=== PATIENT | female | born 1970 | race American Indian/Alaskan Native ===

== ENCOUNTER 2021-08-31 09:43 | Emergency (ER) | payer SELFPAY ==
[2021-08-31] MEDS ORDERED: MORPHINE 4 MG/1 ML INJ IV ONE (10:26)
[2021-08-31] MEDS ORDERED: ONDANSETRON 4 MG/2 ML INJ IV ONE (10:26)
[2021-08-31] MEDS ORDERED: FAMOTIDINE 20 MG/2 ML INJ IV ONE (10:26)
--- NOTE | 2021-08-31 10:32 | Emergency Department Report ---
ED Abdominal Pain HPI - General Chief Complaint: Abdominal Pain Stated Complaint: AB PAINS Time Seen by Provider: 08/31/21 10:19 Source: patient Mode of arrival: Ambulatory Limitations: No Limitations - History of Present Illness Initial Comments: 51-year-old female with a past medical history of obesity, asthma, hypertension, and no previous abdominal surgeries presents to the hospital complaining of severe deep hard epigastric abdominal pain with associated nausea and vomiting for the last 3 hours. Patient also has some loose stools. She denies melena, hematochezia, hematemesis, coffee-ground emesis. Patient has similar intermittent abdominal pain for the past year but has not followed up with the PMD due to lack of insurance. She was unable to tolerate her p.o. hypertensive medications does morning secondary to vomiting. Her medications include spironolactone, losartan, amlodipine. Patient did states she drank a lot of alcohol over the weekend to celebrate her new job but denies daily alcohol intake. She typically drinks 3 glasses of wine a week Severity scale (0 -10): 6 - Related Data Previous Rx's Medication Instructions Recorded Last Taken Type Famotidine [Pepcid] 20 mg PO BID #30 tablet 08/31/21 Unknown Rx Ondansetron [Zofran Odt] 4 mg PO Q8HR PRN #20 tab.rapdis 08/31/21 Unknown Rx traMADoL [Ultram 50 MG tab] 50 mg PO Q6HR PRN #15 tablet 08/31/21 Unknown Rx Allergies Allergy/AdvReac Type Severity Reaction Status Date / Time No Known Allergies Allergy Unverified 05/25/14 11:34 ED Review of Systems ROS: Stated complaint: AB PAINS Other details as noted in HPI Comment: All other systems reviewed and negative ED Past Medical Hx - Past Medical History Previous Medical History?: Yes Hx Hypertension: Yes Hx Asthma: Yes - Surgical History Past Surgical History?: Yes Additional Surgical History: tonsilectomoy. right carpal tunnel. left labia hematoma - Social History Smoking Status: Current Every Day Smoker Substance Use Type: Alcohol, Marijuana - Medications Home Medications: Home Medications Medication Instructions Recorded Confirmed Last Taken Type Famotidine [Pepcid] 20 mg PO BID #30 tablet 08/31/21 Unknown Rx Ondansetron [Zofran Odt] 4 mg PO Q8HR PRN #20 tab.rapdis 08/31/21 Unknown Rx traMADoL [Ultram 50 MG tab] 50 mg PO Q6HR PRN #15 tablet 08/31/21 Unknown Rx ED Physical Exam - General Limitations: No Limitations - Other Other exam information: General: No acute distress Head: Atraumatic Eyes: normal appearance ENT: Moist mucous membranes Neck: Normal appearance, no midline tenderness Chest: Clear to auscultation bilaterally CV: Regular rate and rhythm Abdomen: Soft, normal bowel sounds, epigastric and right upper quadrant tenderness, nondistended, no rebound or guarding Back: Normal inspection Extremity: Normal inspection, full range of motion Neuro: Alert O x 3, no facial asymmetry, speech clear, no gross motor sensory deficit Psych: Appropriate behavior Skin: No rash ED Course Vital Signs 08/31/21 08/31/21 10:00 12:48 Temperature 98.4 F Pulse Rate 90 66 Respiratory 20 16 Rate Blood Pressure 195/124 145/91 [Right] O2 Sat by Pulse 100 95 Oximetry ED Medical Decision Making - Lab Data Result diagrams: 08/31/21 10:29 08/31/21 10:29 Lab Results 08/31/21 08/31/21 08/31/21 Range/Units 10:29 10:29 10:29 WBC 7.9 (4.5-11.0) K/mm3 RBC 5.35 H (3.65-5.03) M/mm3 Hgb 15.4 H (10.1-14.3) gm/dl Hct 47.5 H (30.3-42.9) % MCV 89 (79-97) fl MCH 29 (28-32) pg MCHC 33 (30-34) % RDW 15.0 (13.2-15.2) % Plt Count 240 (140-440) K/mm3 Lymph % (Auto) 17.8 (13.4-35.0) % [place] % (Auto) 6.0 (0.0-7.3) % Eos % (Auto) 0.8 (0.0-4.3) % Baso % (Auto) Diabetic Educator Lymph # (Auto) 1.4 (1.2-5.4) K/mm3 [place] # (Auto) 0.5 (0.0-0.8) K/mm3 Eos # (Auto) 0.1 (0.0-0.4) K/mm3 Baso # (Auto) 0.1 (0.0-0.1) K/mm3 Seg Neutrophils % 74.5 H (40.0-70.0) % Seg Neutrophils # 5.9 (1.8-7.7) K/mm3 Sodium 143 (137-145) mmol/L Potassium 4.2 (3.6-5.0) mmol/L Chloride 107.9 H (98-107) mmol/L Carbon Dioxide 23 (22-30) mmol/L Anion Gap 16 mmol/L BUN 15 (7-17) mg/dL Creatinine 0.7 (0.6-1.2) mg/dL Estimated GFR > 60 ml/min BUN/Creatinine Ratio 21 % Glucose 125 H (65-100) mg/dL Calcium 9.4 (8.4-10.2) mg/dL Total Bilirubin 0.60 (0.1-1.2) mg/dL AST 172 H (5-40) units/L ALT 83 H (7-56) units/L Alkaline Phosphatase 64 (35-129) units/L Troponin T < 0.010 (0.00-0.029) ng/mL Total Protein 7.5 (6.3-8.2) g/dL Albumin 4.1 (3.9-5) g/dL Albumin/Globulin Ratio 1.2 % Lipase 45 (13-60) units/L HCG, Qual (Negative) 08/31/21 Range/Units 10:29 WBC (4.5-11.0) K/mm3 RBC (3.65-5.03) M/mm3 Hgb (10.1-14.3) gm/dl Hct (30.3-42.9) % MCV (79-97) fl MCH (28-32) pg MCHC (30-34) % RDW (13.2-15.2) % Plt Count (140-440) K/mm3 Lymph % (Auto) (13.4-35.0) % [place] % (Auto) (0.0-7.3) % Eos % (Auto) (0.0-4.3) % Baso % (Auto) Lymph # (Auto) (1.2-5.4) K/mm3 [place] # (Auto) (0.0-0.8) K/mm3 Eos # (Auto) (0.0-0.4) K/mm3 Baso # (Auto) (0.0-0.1) K/mm3 Seg Neutrophils % (40.0-70.0) % Seg Neutrophils # (1.8-7.7) K/mm3 Sodium (137-145) mmol/L Potassium (3.6-5.0) mmol/L Chloride (98-107) mmol/L Carbon Dioxide (22-30) mmol/L Anion Gap mmol/L BUN (7-17) mg/dL Creatinine (0.6-1.2) mg/dL Estimated GFR ml/min BUN/Creatinine Ratio % Glucose (65-100) mg/dL Calcium (8.4-10.2) mg/dL Total Bilirubin (0.1-1.2) mg/dL AST (5-40) units/L ALT (7-56) units/L Alkaline Phosphatase (35-129) units/L Troponin T (0.00-0.029) ng/mL Total Protein (6.3-8.2) g/dL Albumin (3.9-5) g/dL Albumin/Globulin Ratio % Lipase (13-60) units/L HCG, Qual Negative (Negative) - Radiology Data Radiology results: report reviewed ULTRASOUND ABDOMEN, LIMITED INDICATION / CLINICAL INFORMATION: RUQ, epigastric pain n,v. COMPARISON: None available. FINDINGS: PANCREAS: Visualized portion shows no significant abnormality. LIVER: Borderline enlarged measuring 17.6 cm. The mildly heterogeneous and echogenic. No focal lesion. Normal hepatopedal blood flow in the main portal vein. GALLBLADDER: Moderately distended with possible tiny echogenic gallstone. No gallbladder wall thickening or edema. BILE DUCTS: No significant abnormality. Common bile duct measures 8 mm. FREE FLUID: None. ADDITIONAL FINDINGS: None. IMPRESSION: 1. Distended gallbladder with possible tiny gallstone. No sonographic evidence for acute cholecystitis. - Medical Decision Making 51-year-old female presents to the hospital planing of intermittent epigastric abdominal pain with nausea vomiting x1 year exacerbated this a.m. Patient did drink a lot of alcohol over the weekend and does endorse some burning pain as well. Ultrasound shows tiny gallstones, gallbladder distention, without signs of cholecystitis.. Patient also lacks fever or leukocytosis. Mild LFT elevation noted with AST greater than ALT which could be secondary to alcohol binge over the weekend. Alk phos bilirubin, and lipase are normal. Patient symptoms improved the ED treatment of morphine, Zofran, and Pepcid. Blood pressure also improved with pain reduction. Patient endorses similar intermittent pain x1 year and will be referred to GI specialist for further work-up and evaluation. Patient also informed that exacerbation may be alcohol induced and to discontinue alcohol intake at this time Critical Care Time: No Critical care attestation.: If time is entered above; I have spent that time in minutes in the direct care of this critically ill patient, excluding procedure time. ED Disposition Clinical Impression: Gastritis, Cholelithiasis, Nausea and vomiting, Elevated AST (SGOT), Chronic hypertension Disposition: HOME / SELF CARE / HOMELESS Is pt being admited?: No Does the pt Need Aspirin: No Condition: Stable Instructions: Abdominal Pain (ED), Nausea and Vomiting, Adult, Bsmt-on-Kwnr, Gastritis, Adult, Cholelithiasis, [id number]-[id number], Gallbladder Eating Plan, Hypertension (ED) Additional Instructions: Take the medication as prescribed. Follow-up with your doctor or doctor/clinic provided. Return if symptoms worsen as indicated by your discharge instructions. Prescriptions: Famotidine [Pepcid] 20 mg PO BID #30 tablet traMADoL [Ultram 50 MG tab] 50 mg PO Q6HR PRN #15 tablet PRN Reason: Pain Ondansetron [Zofran Odt] 4 mg PO Q8HR PRN #20 tab.rapdis PRN Reason: Nausea And Vomiting Referrals: CHIN DERAS MD [Staff Physician] - 3-5 Days (GI doctor ) ARJUN LUNA MD [Staff Physician] - 3-5 Days (primary care doctor ) [facility] [Provider Group] - 3-5 Days (primary care clinic ) Time of Disposition: 13:12
[2021-08-31 11:15] LABS: Basophils # (Auto) 0.1 K/mm3 (0.0-0.1); Eosinophils # (Auto) 0.1 K/mm3 (0.0-0.4); Eosinophils % (Auto) 0.8 % (0.0-4.3); Hematocrit 47.5 % (30.3-42.9); Hemoglobin 15.4 gm/dl (10.1-14.3); Lymphocytes # (Auto) 1.4 K/mm3 (1.2-5.4); Lymphocytes % (Auto) 17.8 % (13.4-35.0); Mean Corpuscular HGB Conc 33 % (30-34); Mean Corpuscular Volume 89 fl (79-97); Monocytes # (Auto) 0.5 K/mm3 (0.0-0.8); Platelet Count 240 K/mm3 (140-440); Red Blood Count 5.35 M/mm3 (3.65-5.03)
[2021-08-31 11:36] LABS: Alanine Aminotransferase 83 units/L (7-56); Albumin 4.1 g/dL (3.9-5); Blood Urea Nitrogen 15 mg/dL (7-17); Calcium 9.4 mg/dL (8.4-10.2); Hemolysis Index 21
[2021-08-31 11:37] LABS: BUN/Creatinine Ratio 21
--- NOTE | 2021-08-31 11:57 | Ultrasound Report ---
ULTRASOUND ABDOMEN, LIMITED INDICATION / CLINICAL INFORMATION: RUQ, epigastric pain n,v. COMPARISON: None available. FINDINGS: PANCREAS: Visualized portion shows no significant abnormality. LIVER: Borderline enlarged measuring 17.6 cm. The mildly heterogeneous and echogenic. No focal lesion . Normal hepatopedal blood flow in the main portal vein. GALLBLADDER: Moderately distended with possible tiny echogenic gallstone. No gallbladder wall thicken ing or edema. BILE DUCTS: No significant abnormality. Common bile duct measures 8 mm. FREE FLUID: None. ADDITIONAL FINDINGS: None. IMPRESSION: 1. Distended gallbladder with possible tiny gallstone. No sonographic evidence for acute cholecystiti s. Signer Name: Liliana Reyes MD Signed: 08/31/2021 11:53 AM Workstation Name: [id number]
[2021-08-31 12:49] VITALS: BP 145/91
--- NOTE | 2021-08-31 14:42 | Electrocardiograph Report ---
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
[2021-09-01] MEDS ORDERED: SODIUM CHLORIDE 0.9% 100 ML ONE (15:11)
[2021-09-01] MEDS ORDERED: hydrALAZINE 20 MG/1 ML INJ ONE (17:33)
[2021-09-01] MEDS ORDERED: LACTATED RINGERS 1,000 ML ONE (17:34)
--- NOTE | 2021-09-09 13:12 | Electrocardiograph Report ---
[facility] Test Date: 2021-08-31 Test Time: 21:24:44 Pat Name: LESLIE WEI Department: Room: Gender: F [employer] Specialist: QUINTON : 1970 Requested By: BARNEY REN Order Number: [id number] Reading MD: Rosette Frye Measurements Intervals [place] Rate: 74 P: 44 MD: 175 QRS: 24 QRSD: 89 T: 85 QT: 407 QTc: 452 Interpretive Statements Sinus rhythm Nonspecific T abnormalities, lateral leads Compared to ECG 08/31/2021 10:19:00 No significant change Electronically Signed On 09-09-2021 13:12:09 EST by Rosette Frye
== END 2021-08-31 13:46 | disposition home or self-care (01) ==
LOC: ED 09:43
DX: K29.70 Gastritis, unspecified, without bleeding (principal); K80.20 Calculus of gallbladder without cholecystitis without obstruction; I10 Essential (primary) hypertension; G89.29 Other chronic pain; R74.01 Elevation of levels of liver transaminase levels; F12.90 Cannabis use, unspecified, uncomplicated; J45.909 Unspecified asthma, uncomplicated; F17.200 Nicotine dependence, unspecified, uncomplicated; Z72.89 Other problems related to lifestyle; Z79.899 Other long term (current) drug therapy
CPT/HCPCS: 36415; 76705; 80053; 83690; 84484; 84703; 85025; 93005; 93010; 96374; 96375; 99284; J2270; J2405; J3490; 99283; J0360; J7120

== ENCOUNTER 2021-08-31 19:08 | Inpatient (IN) | payer SELFPAY ==
[2021-08-31] MEDS ORDERED: MORPHINE 4 MG/1 ML INJ IV ONE (20:15)
[2021-08-31] MEDS ORDERED: ALUM-MAG HYDROXIDE-SIMETHICONE 200-200-20MG/5ML ORAL LIQD 30 ML PO ONE (20:15)
[2021-08-31] MEDS ORDERED: LIDOCAINE VISCOUS 2% 15 ML ORAL LIQD PO ONE (20:15)
[2021-08-31] MEDS ORDERED: METOCLOPRAMIDE 10 MG/2 ML INJ IV ONE (20:15)
--- NOTE | 2021-08-31 20:16 | Event Note ---
ED Screening Note Date of service: 08/31/21 Time: 20:13 ED Screening Note: Patient returns to the ER today with complaints of epigastric pain. Patient was seen here for similar symptoms this morning and had a work-up including labs, and a gallbladder ultrasound. Gallbladder ultrasound showed that patient had a distended gallbladder with a possible tiny stone but no signs of acute cholecystitis. Her labs were unremarkable. Patient was discharged home in stable condition with prescriptions for Pepcid, Ultram and Zofran. Patient states that when she left the ER she felt a little better, she tried to eat a pot pie and sip on some Pepcid but she states that the pain flared up again. She did take the prescriptions that were prescribed to her but it did not seem to help the pain. She has not vomited since she left the ER she just remained nauseous. She described as a dull pain that just "does not seem to go anywhere". Past medical history significant for asthma and hypertension. This initial assessment/diagnostic orders/clinical plan/treatment(s) is/are subject to change based on patients health status, clinical progression and re- assessment by fellow clinical providers in the ED. Further treatment and workup at subsequent clinical providers discretion. Patient/guardian urged not to elope from the ED as their condition may be serious if not clinically assessed and managed. Initial orders include: CT abdomen pelvis with IV contrast; labs; meds
[2021-08-31] MEDS ORDERED: HYDROmorphone 1 MG/1 ML INJ IV ONE (21:08)
--- NOTE | 2021-08-31 21:08 | Emergency Department Report ---
ED Abdominal Pain HPI - General Chief Complaint: Abdominal Pain Stated Complaint: AB PAIN Time Seen by Provider: 08/31/21 20:57 Source: patient Mode of arrival: Ambulatory Limitations: No Limitations - History of Present Illness Initial Comments: Chief complaint: "Gallbladder"." HPI: This is a 51-year-old female with history of hypertension, asthma, BMI 51 presents with fullness in her epigastric region. She was diagnosed with cholelithiasis at this hospital by ultrasound. She attempted to eat a pot pie. The pain returned. She has severe epigastric pain which did not improve with tramadol. She also prescribed Pepcid and Zofran. According to electronic medical record: Ultrasound revealed distended gallbladder with possible tiny gallstone MD Complaint: abdominal pain -: Gradual, This morning Location: epigastric Severity scale (0 -10): 10 Quality: dull Consistency: intermittent Improves With: medication Worsens With: eating Associated Symptoms: nausea, vomiting - Related Data Previous Rx's Medication Instructions Recorded Last Taken Type Famotidine [Pepcid] 20 mg PO BID #30 tablet 08/31/21 Unknown Rx Ondansetron [Zofran Odt] 4 mg PO Q8HR PRN #20 tab.rapdis 08/31/21 Unknown Rx traMADoL [Ultram 50 MG tab] 50 mg PO Q6HR PRN #15 tablet 08/31/21 Unknown Rx Allergies Allergy/AdvReac Type Severity Reaction Status Date / Time No Known Allergies Allergy Unverified 05/25/14 11:34 ED Review of Systems ROS: Stated complaint: AB PAIN Other details as noted in HPI Comment: All other systems reviewed and negative Constitutional: denies: chills, fever, malaise Respiratory: denies: cough, shortness of breath Cardiovascular: denies: chest pain Gastrointestinal: abdominal pain, nausea, vomiting ED Past Medical Hx - Past Medical History Previous Medical History?: Yes Hx Hypertension: Yes Hx Asthma: Yes Additional medical history: Gallstones. Morbid Obesity - Surgical History Past Surgical History?: Yes Additional Surgical History: tonsilectomoy. right carpal tunnel. left labia hematoma - Social History Smoking Status: Never Smoker Substance Use Type: Alcohol - Medications Home Medications: Home Medications Medication Instructions Recorded Confirmed Last Taken Type Famotidine [Pepcid] 20 mg PO BID #30 tablet 08/31/21 Unknown Rx Ondansetron [Zofran Odt] 4 mg PO Q8HR PRN #20 tab.rapdis 08/31/21 Unknown Rx traMADoL [Ultram 50 MG tab] 50 mg PO Q6HR PRN #15 tablet 08/31/21 Unknown Rx ED Physical Exam - General Limitations: No Limitations General appearance: alert, in no apparent distress - Head Head exam: Present: atraumatic, normocephalic - Eye Eye exam: Present: normal appearance - ENT ENT exam: Present: mucous membranes moist - Neck Neck exam: Present: normal inspection, full ROM - Respiratory Respiratory exam: Present: normal lung sounds bilaterally. Absent: respiratory distress, wheezes, rales, rhonchi - Cardiovascular Cardiovascular Exam: Present: regular rate, normal rhythm, normal heart sounds. Absent: systolic murmur, diastolic murmur, rubs, gallop - GI/Abdominal GI/Abdominal exam: Present: soft, normal bowel sounds. Absent: distended, tenderness, guarding, rebound - Extremities Exam Extremities exam: Present: normal inspection - Neurological Exam Neurological exam: Present: alert, oriented X3 - Psychiatric Psychiatric exam: Present: normal affect, normal mood - Skin Skin exam: Present: warm, dry, intact, normal color. Absent: rash ED Course Vital Signs 08/31/21 08/31/21 08/31/21 19:45 20:46 21:32 Temperature 98.6 F Pulse Rate 80 Respiratory 18 18 18 Rate Blood Pressure 191/107 O2 Sat by Pulse 96 Oximetry ED Medical Decision Making - Lab Data Result diagrams: 08/31/21 21:45 08/31/21 21:45 - EKG Data -: EKG Interpreted by Ak EKG shows normal: sinus rhythm, axis, intervals, QRS complexes Rate: normal - EKG Data Interpretation: nonspecific ST-T wave reddy 08/31/21 21:32 EKG obtained 2123 EKG interpreted by me Rate 75 bpm normal sinus rhythm normal axis normal intervals no ST elevation nonspecific T wave pattern - Radiology Data Radiology results: report reviewed Patient Name: LESLIE WEI Gender: Female Date of : 1970 Referring Provider: FRITZ CARTER Organization: [facility] Accession Number: [id number] Requested Date: August 31, 2021 21:11 Report Status: Final Requested Procedure: 1 Procedure Description: CT abdomen pelvis wo con Modality: CT Findings Reporting MD: Liliana Reyes Dictation Time: August 31, 2021 21:08 Nurse Unit Manager: Not available Carton Filler Date: CT ABDOMEN AND PELVIS WITHOUT CONTRAST INDICATION / CLINICAL INFORMATION: epigastric pain severe, cholelithiasis. TECHNIQUE: Axial CT images were obtained through the abdomen and pelvis without IV contrast. All CT scans at this location are performed using CT dose reduction for ALARA by means of automated exposure control. COMPARISON: Ultrasound dated 08/31/21 FINDINGS: LOWER CHEST: No significant abnormality. LIVER: No significant abnormality. GALLBLADDER: Gallbladder is moderately distended with no definite calcified gallstones or wall thickening. BILE DUCTS: No significant abnormality. PANCREAS: No significant abnormality. SPLEEN: No significant abnormality. ADRENALS: No significant abnormality. RIGHT KIDNEY / URETER: No significant abnormality. LEFT KIDNEY / URETER: No significant abnormality. STOMACH / SMALL BOWEL: No significant abnormality. COLON: No significant abnormality. APPENDIX: No significant abnormality. PERITONEUM: No free fluid. No free air. No fluid collection. LYMPH NODES: No significant adenopathy. AORTA / ARTERIES: No significant abnormality. IVC / VEINS: No significant abnormality. URINARY BLADDER: No significant abnormality. REPRODUCTIVE ORGANS: No significant abnormality. ADDITIONAL FINDINGS: None. SKELETAL SYSTEM: No significant abnormality. IMPRESSION: 1. No inflammatory process or bowel obstruction. 2. Distended gallbladder but no definite calcified stones. No CT evidence for cholecystitis. Signer Name: Liliana Reyes MD Signed: 08/31/2021 9:08 PM Workstation Name: [id number] Patient Name: LESLIE WEI Gender: Female Date of : 1970 Referring Provider: BARNEY REN Organization: [facility] Accession Number: [id number] Requested Date: August 31, 2021 10:27 Report Status: Final Requested Procedure: 1 Procedure Description: US abdomen limited Modality: US Findings Reporting MD: Liliana Reyes Dictation Time: August 31, 2021 10:53 Nurse Unit Manager: Not available Carton Filler Date: ULTRASOUND ABDOMEN, LIMITED INDICATION / CLINICAL INFORMATION: RUQ, epigastric pain n,v. COMPARISON: None available. FINDINGS: PANCREAS: Visualized portion shows no significant abnormality. LIVER: Borderline enlarged measuring 17.6 cm. The mildly heterogeneous and echogenic. No focal lesion. Normal hepatopedal blood flow in the main portal vein. GALLBLADDER: Moderately distended with possible tiny echogenic gallstone. No gallbladder wall thickening or edema. BILE DUCTS: No significant abnormality. Common bile duct measures 8 mm. FREE FLUID: None. ADDITIONAL FINDINGS: None. IMPRESSION: 1. Distended gallbladder with possible tiny gallstone. No sonographic evidence for acute cholecystitis. Signer Name: Liliana Reyes MD Signed: 08/31/2021 10:53 AM Workstation Name: [id number] - Medical Decision Making Clinical impression: Acute cholecystitis with possible choledocholithiasis total bilirubin increased 0.6-1.5 today, transaminitis worsening. Dr. Jin recommended MRCP to rule out choledocholithiasis. She also recommended empiric antibiotics. Patient made NPO. Patient mated to the hospital service in stable condition. Work-up revealed persistently distended gallbladder on ultrasound this morning and CT abdomen pelvis this evening. No significant leukocytosis troponin lipase within normal limits EKG without evidence of infarct or ischemia Critical care attestation.: If time is entered above; I have spent that time in minutes in the direct care of this critically ill patient, excluding procedure time. ED Disposition Clinical Impression: Cholecystitis, Cholelithiasis Disposition: ADMITTED INPATIENT Is pt being admited?: Yes Does the pt Need Aspirin: No Condition: Stable Instructions: Abdominal Pain (ED) Referrals: PRIMARY CARE, [Primary Care Provider] - 3-5 Days
--- NOTE | 2021-08-31 22:12 | Cat Scan Report ---
CT ABDOMEN AND PELVIS WITHOUT CONTRAST INDICATION / CLINICAL INFORMATION: epigastric pain severe, cholelithiasis. TECHNIQUE: Axial CT images were obtained through the abdomen and pelvis without IV contrast. All CT scans at this location are performed using CT dose reduction for ALARA by means of automated exposure control. COMPARISON: Ultrasound dated 08/31/21 FINDINGS: LOWER CHEST: No significant abnormality. LIVER: No significant abnormality. GALLBLADDER: Gallbladder is moderately distended with no definite calcified gallstones or wall thicke daria. BILE DUCTS: No significant abnormality. PANCREAS: No significant abnormality. SPLEEN: No significant abnormality. ADRENALS: No significant abnormality. RIGHT KIDNEY / URETER: No significant abnormality. LEFT KIDNEY / URETER: No significant abnormality. STOMACH / SMALL BOWEL: No significant abnormality. COLON: No significant abnormality. APPENDIX: No significant abnormality. PERITONEUM: No free fluid. No free air. No fluid collection. LYMPH NODES: No significant adenopathy. AORTA / ARTERIES: No significant abnormality. IVC / VEINS: No significant abnormality. URINARY BLADDER: No significant abnormality. REPRODUCTIVE ORGANS: No significant abnormality. ADDITIONAL FINDINGS: None. SKELETAL SYSTEM: No significant abnormality. IMPRESSION: 1. No inflammatory process or bowel obstruction. 2. Distended gallbladder but no definite calcified stones. No CT evidence for cholecystitis. Signer Name: Liliana Reyes MD Signed: 08/31/2021 10:08 PM Workstation Name: [id number]
[2021-08-31 22:22] LABS: Alanine Aminotransferase 122 units/L (7-56); Albumin 4.4 g/dL (3.9-5); Blood Urea Nitrogen 11 mg/dL (7-17); Calcium 9.2 mg/dL (8.4-10.2); Hemolysis Index 152
[2021-08-31 22:25] LABS: BUN/Creatinine Ratio 18
[2021-08-31 22:31] LABS: Basophils # (Auto) 0.1 K/mm3 (0.0-0.1); Basophils % (Auto) 0.6 % (0.0-1.8); Eosinophils # (Auto) 0.1 K/mm3 (0.0-0.4); Eosinophils % (Auto) 1.6 % (0.0-4.3); Hematocrit 47.8 % (30.3-42.9); Hemoglobin 15.6 gm/dl (10.1-14.3); Lymphocytes # (Auto) 1.8 K/mm3 (1.2-5.4); Lymphocytes % (Auto) 21.6 % (13.4-35.0); Mean Corpuscular HGB Conc 33 % (30-34); Mean Corpuscular Volume 88 fl (79-97); Monocytes # (Auto) 0.6 K/mm3 (0.0-0.8); Monocytes % (Auto) 7.6 % (0.0-7.3); Platelet Count 258 K/mm3 (140-440); Red Blood Count 5.44 M/mm3 (3.65-5.03); Red Cell Distribution Width 14.7 % (13.2-15.2)
[2021-08-31] MEDS ORDERED: PIPERACIL/TAZOBACTA 4.5/NS 100 4.5 GM/100 ML VIAL IV ONE (22:57)
[2021-09-01] MEDS ORDERED: MAGNESIUM HYDROXIDE (MOM) ORAL LIQD UDC PO PRN (00:24)
--- NOTE | 2021-09-01 00:33 | History and Physical Report ---
History of Present Illness Date of examination: 09/01/21 Date of admission: 09/01/2021 Chief complaint: Abdominal Pain Past History Past Medical History: hypertension, other (Asthma,Morbid Obesity) Past Surgical History: Other (tonsilectomoy. right carpal tunnel. left labia hematoma) Social history: alcohol abuse Family history: no significant family history Medications and Allergies Allergies Allergy/AdvReac Type Severity Reaction Status Date / Time No Known Allergies Allergy Unverified 05/25/14 11:34 Home Medications Medication Instructions Recorded Confirmed Last Taken Type Famotidine [Pepcid] 20 mg PO BID #30 tablet 08/31/21 Unknown Rx Ondansetron [Zofran Odt] 4 mg PO Q8HR PRN #20 tab.rapdis 08/31/21 Unknown Rx traMADoL [Ultram 50 MG tab] 50 mg PO Q6HR PRN #15 tablet 08/31/21 Unknown Rx Active Meds: Active Medications Acetaminophen (Acetaminophen 325 Mg Tab) 650 mg PO Q4H PRN PRN Reason: Pain MILD(1-3)/Fever >100.5/ROTH Sodium Chloride (Nacl 0.9% 1000 Ml) 1,000 mls @ 125 mls/hr IV DIRECT MATHEW Magnesium Hydroxide (Magnesium Hydroxide (Mom) Oral Liqd Udc) 30 ml PO Q4H PRN PRN Reason: Constipation Morphine Sulfate (Morphine 2 Mg/1 Ml Inj) 2 mg IV Q4H PRN PRN Reason: Pain, Moderate (4-6) Morphine Sulfate (Morphine 4 Mg/1 Ml Inj) 4 mg IV Q4H PRN PRN Reason: Pain , Severe (7-10) Ondansetron HCl (Ondansetron 4 Mg/2 Ml Inj) 4 mg IV Q8H PRN PRN Reason: Nausea And Vomiting Sodium Chloride (Sodium Chloride 0.9% 10 Ml Flush Syringe) 10 ml IV BID MATHEW Sodium Chloride (Sodium Chloride 0.9% 10 Ml Flush Syringe) 10 ml IV PRN PRN PRN Reason: LINE FLUSH Review of Systems Constitutional: no fever, no chills Ears, nose, mouth and throat: no nasal congestion, no sore throat Cardiovascular: no chest pain, no palpitations Respiratory: no cough, no shortness of breath Gastrointestinal: abdominal pain, nausea, vomiting, diarrhea, no melena, no hematochezia Genitourinary Female: no pelvic pain, no flank pain, no dysuria Musculoskeletal: no neck pain, no low back pain Integumentary: no rash, no pruritis Neurological: no headaches, no confusion Psychiatric: no anxiety, no depression Endocrine: no polyphagia, no polydipsia, no polyuria, no nocturia Exam - Constitutional Vitals: Temp Pulse Resp BP Pulse Ox 98.6 F 80 18 191/107 96 08/31/21 19:45 08/31/21 19:45 08/31/21 21:32 08/31/21 19:45 08/31/21 19:45 General appearance: Present: no acute distress, well-nourished, obese - EENT Eyes: Present: PERRL, EOM intact. Absent: scleral icterus ENT: hearing intact, clear oral mucosa, dentition normal - Neck Neck: Present: supple, normal ROM - Respiratory Respiratory effort: normal Respiratory: bilateral: CTA - Cardiovascular Rhythm: regular Heart Sounds: Present: S1 & S2. Absent: systolic murmur, diastolic murmur, rub, click - Extremities Extremities: no ischemia, pulses intact, pulses symmetrical, No edema, normal temperature, Full ROM Peripheral Pulses: within normal limits - Abdominal General gastrointestinal: Present: soft, tender, non-distended, normal bowel sounds. Absent: mass Localized gastrointestinal: tender: epigastric periumbilical - Integumentary Integumentary: Present: clear, warm, dry. Absent: rash - Musculoskeletal Musculoskeletal: strength equal bilaterally - Psychiatric Psychiatric: appropriate mood/affect, intact judgment & insight, memory intact, cooperative - Neurologic Neurologic: CNII-XII intact, no focal deficits, moves all extremities HEART Score - HEART Score Troponin: Troponin T < 0.010 ng/mL (0.00-0.029) 08/31/21 21:45 Results - Labs CBC & Chem 7: 08/31/21 21:45 08/31/21 21:45 Labs: Abnormal lab results 08/31/21 08/31/21 Range/Units 21:45 21:45 RBC 5.44 H (3.65-5.03) M/mm3 Hgb 15.6 H (10.1-14.3) gm/dl Hct 47.8 H (30.3-42.9) % [place] % (Auto) 7.6 H (0.0-7.3) % Glucose 106 H (65-100) mg/dL Total Bilirubin 1.50 H (0.1-1.2) mg/dL AST 193 H (5-40) units/L ALT 122 H (7-56) units/L Total Protein 8.3 H (6.3-8.2) g/dL Assessment and Plan - Patient Problems (1) Hypertension Current Visit: Yes Status: Acute (2) Cholecystitis Current Visit: Yes Status: Acute (3) Elevated AST (SGOT) Current Visit: No Status: Acute (4) Nausea and vomiting Current Visit: No Status: Acute (5) DVT prophylaxis Current Visit: Yes Status: Acute (6) Full code status Current Visit: Yes Status: Acute
[2021-09-01] MEDS: ONDANSETRON 4 MG/2 ML INJ IV PRN (03:30)
--- NOTE | 2021-09-01 10:16 | Progress Note ---
Assessment and Plan Assessment and plan: Abdominal pain. Accelerated hypertension morbid obesity 09/01/2021. Patient noted to have a distended gallbladder but no definite calcified stones. No CT evidence for cholecystitis. Patient still with some moderate right upper quadrant abdominal pain. Await general surgery evaluation. Consider HIDA scan/right upper quadrant ultrasound--defer to surgery. Patient with accelerated hypertension and n.p.o. given the abdominal pain. We will treat with IV hydralazine for now and resume home antihypertensive medications when able to take p.o. History Interval history: No new issues overnight. Hospitalist Physical - Constitutional Vitals: Temp Pulse Resp BP Pulse Ox 98.3 F 67 20 155/100 95 09/01/21 04:33 09/01/21 04:33 09/01/21 04:33 09/01/21 04:33 09/01/21 04:33 General appearance: Present: no acute distress, well-nourished, obese - EENT Eyes: Present: PERRL, EOM intact ENT: hearing intact, clear oral mucosa, dentition normal - Neck Neck: Present: supple, normal ROM - Respiratory Respiratory effort: normal Respiratory: bilateral: CTA - Cardiovascular Rhythm: regular Heart Sounds: Present: S1 & S2. Absent: gallop, rub - Extremities Extremities: no ischemia, No edema, Full ROM - Abdominal General gastrointestinal: soft, non-tender, non-distended, normal bowel sounds - Integumentary Integumentary: Present: clear, warm, dry - Neurologic Neurologic: CNII-XII intact, moves all extremities HEART Score - HEART Score Troponin: Troponin T < 0.010 ng/mL (0.00-0.029) 08/31/21 21:45 Results - Labs CBC & Chem 7: 08/31/21 21:45 08/31/21 21:45 Labs: Laboratory Last Values WBC 8.3 K/mm3 (4.5-11.0) 08/31/21 21:45 RBC 5.44 M/mm3 (3.65-5.03) H 08/31/21 21:45 Hgb 15.6 gm/dl (10.1-14.3) H 08/31/21 21:45 Hct 47.8 % (30.3-42.9) H 08/31/21 21:45 MCV 88 fl (79-97) 08/31/21 21:45 MCH 29 pg (28-32) 08/31/21 21:45 MCHC 33 % (30-34) 08/31/21 21:45 RDW 14.7 % (13.2-15.2) 08/31/21 21:45 Plt Count 258 K/mm3 (140-440) 08/31/21 21:45 Lymph % (Auto) 21.6 % (13.4-35.0) 08/31/21 21:45 [place] % (Auto) 7.6 % (0.0-7.3) H 08/31/21 21:45 Eos % (Auto) 1.6 % (0.0-4.3) 08/31/21 21:45 Baso % (Auto) 0.6 % (0.0-1.8) 08/31/21 21:45 Lymph # (Auto) 1.8 K/mm3 (1.2-5.4) 08/31/21 21:45 [place] # (Auto) 0.6 K/mm3 (0.0-0.8) 08/31/21 21:45 Eos # (Auto) 0.1 K/mm3 (0.0-0.4) 08/31/21 21:45 Baso # (Auto) 0.1 K/mm3 (0.0-0.1) 08/31/21 21:45 Seg Neutrophils % 68.6 % (40.0-70.0) 08/31/21 21:45 Seg Neutrophils # 5.7 K/mm3 (1.8-7.7) 08/31/21 21:45 Sodium 143 mmol/L (137-145) 08/31/21 21:45 Potassium 4.4 mmol/L (3.6-5.0) 08/31/21 21:45 Chloride 106.1 mmol/L (98-107) 08/31/21 21:45 Carbon Dioxide 22 mmol/L (22-30) 08/31/21 21:45 Anion Gap 19 mmol/L 08/31/21 21:45 BUN 11 mg/dL (7-17) 08/31/21 21:45 Creatinine 0.6 mg/dL (0.6-1.2) 08/31/21 21:45 Estimated GFR > 60 ml/min 08/31/21 21:45 BUN/Creatinine Ratio 18 % 08/31/21 21:45 Glucose 106 mg/dL (65-100) H 08/31/21 21:45 Calcium 9.2 mg/dL (8.4-10.2) 08/31/21 21:45 Total Bilirubin 1.50 mg/dL (0.1-1.2) H 08/31/21 21:45 AST 193 units/L (5-40) H 08/31/21 21:45 ALT 122 units/L (7-56) H 08/31/21 21:45 Alkaline Phosphatase 73 units/L (35-129) 08/31/21 21:45 Troponin T < 0.010 ng/mL (0.00-0.029) 08/31/21 21:45 Total Protein 8.3 g/dL (6.3-8.2) H 08/31/21 21:45 Albumin 4.4 g/dL (3.9-5) 08/31/21 21:45 Albumin/Globulin Ratio 1.1 % 08/31/21 21:45 Lipase 34 units/L (13-60) 08/31/21 21:45 Active Medications - Current Medications Current Medications: Generic Name Dose Route Start Last Admin Trade Name Freq PRN Reason Stop Dose Admin Acetaminophen 650 mg 09/01/21 00:24 Acetaminophen 325 Mg Tab PO Q4H PRN Pain MILD(1-3)/Fever >100.5/ROTH Sodium Chloride 1,000 mls @ 125 mls/hr 09/01/21 00:30 Nacl 0.9% 1000 Ml IV DIRECT MATHEW Piperacillin Sod/Tazobactam Sod 4.5 gm in 100 mls @ 200 mls/hr 09/01/21 10:00 Zosyn/Ns 4.5gm/100ml IV Q8H MATHEW Protocol Magnesium Hydroxide 30 ml 09/01/21 00:24 Magnesium Hydroxide (Mom) Oral Liqd Udc PO Q4H PRN Constipation Morphine Sulfate 2 mg 09/01/21 00:24 Morphine 2 Mg/1 Ml Inj IV Q4H PRN Pain, Moderate (4-6) Morphine Sulfate 4 mg 09/01/21 00:24 Morphine 4 Mg/1 Ml Inj IV Q4H PRN Pain , Severe (7-10) Ondansetron HCl 4 mg 09/01/21 00:24 09/01/21 03:30 Ondansetron 4 Mg/2 Ml Inj IV 4 mg Q8H PRN Administration Nausea And Vomiting Sodium Chloride 10 ml 09/01/21 10:00 Sodium Chloride 0.9% 10 Ml Flush Syringe IV BID MATHEW Sodium Chloride 10 ml 09/01/21 00:24 Sodium Chloride 0.9% 10 Ml Flush Syringe IV PRN PRN LINE FLUSH
[2021-09-01] MEDS ORDERED: hydrALAZINE 20 MG/1 ML INJ IV PRN ×2 (10:30→17:38)
--- NOTE | 2021-09-01 10:59 | Consultation ---
History of Present Illness Consult date: 09/01/21 Reason for consult: abdominal pain Chief complaint: Abdominal pain - History of present illness History of present illness: 51-year-old female with past medical history of hypertension, morbid obesity, as thma who presents to the ER with complaints of severe epigastric abdominal pain. The pain is dull/burning in nature. Patient states that this is been ongoing for the last 1 year. The pain has been intermittent, located in the epigastrium and sometimes radiates to the right upper quadrant and back. She states she has tried Tums and Mylanta without relief. Spicy and fried foods exacerbate the s ymptoms. She has been having nausea and vomiting which is nonbloody and nonbilious. She has been having diarrhea, light-colored stools. No fevers or chills. No chest pain or shortness of breath. Past History Past Medical History: hypertension, other (Asthma,Morbid Obesity) Past Surgical History: Other (tonsilectomoy. right carpal tunnel. left labia hematoma) Social history: alcohol abuse Family history: no significant family history Medications and Allergies Allergies Allergy/AdvReac Type Severity Reaction Status Date / Time No Known Allergies Allergy Unverified 05/25/14 11:34 Home Medications Medication Instructions Recorded Confirmed Last Taken Type Famotidine [Pepcid] 20 mg PO BID #30 tablet 08/31/21 09/01/21 Unknown Rx Ondansetron [Zofran Odt] 4 mg PO Q8HR PRN #20 tab.rapdis 08/31/21 09/01/21 Unknown Rx traMADoL [Ultram 50 MG tab] 50 mg PO Q6HR PRN #15 tablet 08/31/21 09/01/21 Unknown Rx Losartan 100 mg PO HS 09/01/21 09/01/21 Unknown History Spironolactone 25 mg PO DAILY 09/01/21 09/01/21 Unknown History amLODIPine 10 mg PO HS 09/01/21 09/01/21 Unknown History Active Meds: Active Medications Acetaminophen (Acetaminophen 325 Mg Tab) 650 mg PO Q4H PRN PRN Reason: Pain MILD(1-3)/Fever >100.5/ROTH Hydralazine HCl (Hydralazine 20 Mg/1 Ml Inj) 10 mg IV Q4HR PRN PRN Reason: Blood Pressure Sodium Chloride (Nacl 0.9% 1000 Ml) 1,000 mls @ 125 mls/hr IV DIRECT MATHEW Piperacillin Sod/Tazobactam Sod (Zosyn/Ns 4.5gm/100ml) 4.5 gm in 100 mls @ 200 mls/hr IV Q8H MAHTEW; Protocol Magnesium Hydroxide (Magnesium Hydroxide (Mom) Oral Liqd Udc) 30 ml PO Q4H PRN PRN Reason: Constipation Morphine Sulfate (Morphine 2 Mg/1 Ml Inj) 2 mg IV Q4H PRN PRN Reason: Pain, Moderate (4-6) Morphine Sulfate (Morphine 4 Mg/1 Ml Inj) 4 mg IV Q4H PRN PRN Reason: Pain , Severe (7-10) Ondansetron HCl (Ondansetron 4 Mg/2 Ml Inj) 4 mg IV Q8H PRN PRN Reason: Nausea And Vomiting Last Admin: 09/01/21 03:30 Dose: 4 mg Sodium Chloride (Sodium Chloride 0.9% 10 Ml Flush Syringe) 10 ml IV BID MATHEW Sodium Chloride (Sodium Chloride 0.9% 10 Ml Flush Syringe) 10 ml IV PRN PRN PRN Reason: LINE FLUSH Review of Systems All systems: negative (10 point ROS performed and negative except for that listed in HPI) Exam Vital Signs Temp Pulse Resp BP Pulse Ox 98.6 F 80 18 191/107 96 08/31/21 19:45 08/31/21 19:45 08/31/21 19:45 08/31/21 19:45 08/31/21 19:45 Narrative exam: Gen.: Awake, alert, oriented x3. No apparent distress ENT: Trachea midline. No lymphadenopathy. No scleral icterus or conjunctival pallor CV: S1, S2 present Respiratory: No audible wheezes Abdomen: Soft, nondistended, obese, tenderness to palpation in the right upper quadrant. No rebound, rigidity, guarding Extremities: No clubbing, cyanosis, edema Results - Labs 08/31/21 21:45 08/31/21 21:45 Abnormal lab results 08/31/21 08/31/21 Range/Units 21:45 21:45 RBC 5.44 H (3.65-5.03) M/mm3 Hgb 15.6 H (10.1-14.3) gm/dl Hct 47.8 H (30.3-42.9) % [place] % (Auto) 7.6 H (0.0-7.3) % Glucose 106 H (65-100) mg/dL Total Bilirubin 1.50 H (0.1-1.2) mg/dL AST 193 H (5-40) units/L ALT 122 H (7-56) units/L Total Protein 8.3 H (6.3-8.2) g/dL Diabetes panel 08/31/21 Range/Units 21:45 Sodium 143 (137-145) mmol/L Potassium 4.4 (3.6-5.0) mmol/L Chloride 106.1 (98-107) mmol/L Carbon Dioxide 22 (22-30) mmol/L BUN 11 (7-17) mg/dL Creatinine 0.6 (0.6-1.2) mg/dL Glucose 106 H (65-100) mg/dL Calcium 9.2 (8.4-10.2) mg/dL AST 193 H (5-40) units/L ALT 122 H (7-56) units/L Alkaline Phosphatase 73 (35-129) units/L Total Protein 8.3 H (6.3-8.2) g/dL Albumin 4.4 (3.9-5) g/dL Calcium panel 08/31/21 Range/Units 21:45 Calcium 9.2 (8.4-10.2) mg/dL Albumin 4.4 (3.9-5) g/dL Pituitary panel 08/31/21 Range/Units 21:45 Sodium 143 (137-145) mmol/L Potassium 4.4 (3.6-5.0) mmol/L Chloride 106.1 (98-107) mmol/L Carbon Dioxide 22 (22-30) mmol/L BUN 11 (7-17) mg/dL Creatinine 0.6 (0.6-1.2) mg/dL Glucose 106 H (65-100) mg/dL Calcium 9.2 (8.4-10.2) mg/dL Adrenal panel 08/31/21 Range/Units 21:45 Sodium 143 (137-145) mmol/L Potassium 4.4 (3.6-5.0) mmol/L Chloride 106.1 (98-107) mmol/L Carbon Dioxide 22 (22-30) mmol/L BUN 11 (7-17) mg/dL Creatinine 0.6 (0.6-1.2) mg/dL Glucose 106 H (65-100) mg/dL Calcium 9.2 (8.4-10.2) mg/dL Total Bilirubin 1.50 H (0.1-1.2) mg/dL AST 193 H (5-40) units/L ALT 122 H (7-56) units/L Alkaline Phosphatase 73 (35-129) units/L Total Protein 8.3 H (6.3-8.2) g/dL Albumin 4.4 (3.9-5) g/dL - Imaging CT scan - abdomen: report reviewed, image reviewed CT scan - pelvis: report reviewed, image reviewed US - abdomen: report reviewed, image reviewed Assessment and Plan 51-year-old female with cholelithiasis, dilated common bile duct, transaminitis and hyperbilirubinemia Plan: 1. NPO 2. IVF 3. empiric abx 4. MRCP ordered to r/o choledocolithiasis however cannot be performed due to patient's weight 5. prn pain and nausea control 6. rpt CMP pending 7. Recommend cholecystectomy. I discussed all risk benefits, alternatives to surgery with the patient and questions answered. Will attempt to perform IOC intraoperatively as patient cannot have MRCP performed. Explained to patient if IOC is positive, will consult gastroenterology for an ERCP. She understands. Consent obtained for lap audrey, possible open, cholangiogram. We will proceed to the OR today if time available. Thank you for this consultation. Please call with any questions or concerns. Evaluation and treatment of this patient was during the time of the national and state emergency arising from COVID19 coronavirus pandemic. Treatment and procedures performed meet the current and available best practice and guidelines for patient during the COVID pandemic.
[2021-09-01] MEDS: SODIUM CHLORIDE 0.9% 1000 ML 1,000 ML IV SCH ×2 (11:03→21:37)
[2021-09-01] MEDS: PIPERACIL/TAZOBACTA 4.5/NS 100 4.5 GM/100 ML VIAL IV SCH ×2 (11:04→20:56)
--- NOTE | 2021-09-01 11:04 | Anesthesia Consultation ---
Anesthesia Consult and Med Hx Date of service: 09/01/21 - Airway Anesthetic Teeth Evaluation: Good ROM Head & Neck: Adequate Mental/Hyoid Distance: Adequate Mallampati Class: Class III Intubation Access Assessment: Possibly Difficult - Pre-Operative Health Status ASA Pre-Surgery Classification: ASA3 Proposed Anesthetic Plan: General - Pulmonary Hx Smoking: Yes (only marijuana) Hx Asthma: Yes (Albuterol inhaler 3-4/week, nubilizer 1/month) Hx Sleep Apnea: Yes (suspected, no testing done) - Cardiovascular System Hx Hypertension: Yes (last meds 2 days ago) - Gastrointestinal Hx Gastroesophageal Reflux Disease: Yes - Endocrine Hx Non-Insulin Dependent Diabetes: No (takes metformin for POD) - Other Systems Hx Obesity: Yes (morbid obesity, BMI 51.1)
--- NOTE | 2021-09-01 11:05 | Anesthesia Day of Surgery ---
Anesthesia Day of Surgery - Day of Surgery Patient Examined: Yes Patient H&P Reviewed: Yes Patient is NPO: Yes
[2021-09-01 13:36] LABS: Alanine Aminotransferase 107 units/L (7-56); Albumin 4.1 g/dL (3.9-5); BUN/Creatinine Ratio 12; Blood Urea Nitrogen 12 mg/dL (7-17); Calcium 8.8 mg/dL (8.4-10.2); Hemolysis Index 4
[2021-09-01] MEDS ORDERED: dexAMETHasone 20 MG/5 ML VIAL ONE (13:46)
[2021-09-01] MEDS ORDERED: LIDOCAINE MPF (2%) 20 MG/1 ML VIAL 5 ML ONE (13:46)
[2021-09-01] MEDS ORDERED: HYDROmorphone 1 MG/1 ML INJ ONE (13:46)
[2021-09-01] MEDS ORDERED: KETOROLAC 30 MG/1 ML INJ ONE (13:46)
[2021-09-01] MEDS ORDERED: ONDANSETRON 4 MG/2 ML INJ ONE (13:46)
[2021-09-01] MEDS ORDERED: ROCURONIUM 50 MG/5 ML INJ IV ONE (13:46)
[2021-09-01] MEDS ORDERED: propofoL 200 MG/20 ML VIAL IV ONE (13:47)
[2021-09-01] MEDS ORDERED: MIDAZOLAM 2 MG/2 ML INJ ONE (13:47)
[2021-09-01] MEDS ORDERED: LIDOCAINE (1%) 10 MG/1 ML VIAL 20 ML MDV ONE (14:01)
[2021-09-01] MEDS ORDERED: BUPIVACAINE/PF (0.5%) 5 MG/1 ML 30 ML VIAL INFILTRATI ONE ×2 (14:01→15:07)
[2021-09-01] MEDS ORDERED: LIDOCAINE (1%) 10 MG/1 ML VIAL 20 ML MDV INFILTRATI ONE (15:08)
[2021-09-01] MEDS ORDERED: WATER FOR IRRIG STERILE 1,500 ML BOTTLE IR ONE (15:08)
[2021-09-01] MEDS ORDERED: NEOSTIGMINE 10MG/10 ML INJ MDV ONE (16:21)
[2021-09-01] MEDS ORDERED: LACTATED RINGERS 1,000 ML ONE (16:21)
[2021-09-01] MEDS ORDERED: GLYCOPYRROLATE 0.4 MG/2 ML INJ ONE ×2 (16:21)
--- NOTE | 2021-09-01 16:39 | Post Operative Note ---
Pre-op diagnosis: cholelithiasis Post-op diagnosis: other (cholelithiasis, possible choledocolithiasis) Findings: Distended gallbladder containing small stones. Small stones in cystic duct. Attempted IOC unsuccessful d/t downstream resistance, likely stones. Procedure: lap audrey with attempted IOC Anesthesia: KANU, local Surgeon: MELISSA AUSTIN Rig Builder Helper: ROWAN DANIEL Estimated blood loss: minimal Pathology: list (gallbladder) Specimen disposition: to lab Condition: stable Disposition: PACU
--- NOTE | 2021-09-01 18:41 | Post Anesthesia Evaluation ---
- Post Anesthesia Evaluation Patient Participated: Yes Airway Patent: Yes Stable Respiratory Function: Yes Nausea/Vomiting: No Temp > 96.8F: Yes Pain Manageable: Yes Adequeate Hydration: Yes Anesthesia Complications: No Block Receding Appropriately: Not Applicable Patient on Ventilator: No
[2021-09-01] MEDS: MORPHINE 2 MG/1 ML INJ IV PRN (20:56)
[2021-09-02] MEDS: ONDANSETRON 4 MG/2 ML INJ IV PRN (00:38)
[2021-09-02] MEDS: MORPHINE 4 MG/1 ML INJ IV PRN (02:30)
[2021-09-02] MEDS: PIPERACIL/TAZOBACTA 4.5/NS 100 4.5 GM/100 ML VIAL IV SCH ×3 (03:30→19:35)
[2021-09-02 07:37] LABS: Basophils # (Auto) 0.1 K/mm3 (0.0-0.1); Basophils % (Auto) 0.5 % (0.0-1.8); Eosinophils % (Auto) 0.1 % (0.0-4.3); Hematocrit 43.8 % (30.3-42.9); Hemoglobin 14.1 gm/dl (10.1-14.3); Lymphocytes # (Auto) 1.9 K/mm3 (1.2-5.4); Lymphocytes % (Auto) 17.3 % (13.4-35.0); Mean Corpuscular HGB Conc 32 % (30-34); Mean Corpuscular Volume 89 fl (79-97); Monocytes # (Auto) 0.7 K/mm3 (0.0-0.8); Monocytes % (Auto) 6.9 % (0.0-7.3); Platelet Count 253 K/mm3 (140-440); Red Blood Count 4.93 M/mm3 (3.65-5.03)
[2021-09-02 07:54] LABS: Alanine Aminotransferase 86 units/L (7-56); Albumin 3.9 g/dL (3.9-5); BUN/Creatinine Ratio 11; Blood Urea Nitrogen 10 mg/dL (7-17); Calcium 8.7 mg/dL (8.4-10.2); Hemolysis Index 88
--- NOTE | 2021-09-02 08:50 | Gastroenterology Consultation ---
History of Present Illness - Reason for Consult Consult date: 09/02/21 abnormal liver enzymes, abnormal IOC Requesting physician: MELISSA AUSTIN - History of Present Illness The patient is a 51 yo aaf with h/o morbid obesity, asthma who presents with epigastric/ruq pain. pt has been having recurrent episodes of abd pain for the past year. sx's wax and wane, worsened prior to this admission. found to have abnormal liver enzymes and gallstones on imaging. non-dilated cbd on ct scan. mrcp was unable to be performed to due to bmi/weight. s/p CCY with abnormal IOC (non-passage of contrast due to resistance suggestive of obstructive process likely from retained stones vs debris). improvement in liver enzymes since admission. pt has some abd soreness post surgery but no fevers/chills/n/v. not on anticoagulation/plavix. Past History Past Medical History: hypertension, other (Asthma,Morbid Obesity) Past Surgical History: Other (tonsilectomoy. right carpal tunnel. left labia hematoma) Social history: alcohol abuse Family history: no significant family history Medications and Allergies Allergies Allergy/AdvReac Type Severity Reaction Status Date / Time No Known Allergies Allergy Unverified 05/25/14 11:34 Home Medications Medication Instructions Recorded Confirmed Last Taken Type Famotidine [Pepcid] 20 mg PO BID #30 tablet 08/31/21 09/01/21 Unknown Rx Ondansetron [Zofran Odt] 4 mg PO Q8HR PRN #20 tab.rapdis 08/31/21 09/01/21 Unknown Rx traMADoL [Ultram 50 MG tab] 50 mg PO Q6HR PRN #15 tablet 08/31/21 09/01/21 Unknown Rx Losartan 100 mg PO HS 09/01/21 09/01/21 Unknown History Spironolactone 25 mg PO DAILY 09/01/21 09/01/21 Unknown History amLODIPine 10 mg PO HS 09/01/21 09/01/21 Unknown History Active Meds: Active Medications Acetaminophen (Acetaminophen 325 Mg Tab) 650 mg PO Q4H PRN PRN Reason: Pain MILD(1-3)/Fever >100.5/ROTH Hydralazine HCl (Hydralazine 20 Mg/1 Ml Inj) 10 mg IV Q4HR PRN PRN Reason: Blood Pressure Hydralazine HCl (Hydralazine 20 Mg/1 Ml Inj) 10 mg IV ONCE PRN PRN Reason: Hypertension Last Admin: 09/01/21 17:32 Dose: 10 mg Sodium Chloride (Nacl 0.9% 1000 Ml) 1,000 mls @ 125 mls/hr IV DIRECT MATHEW Last Admin: 09/01/21 21:37 Dose: 125 mls/hr Piperacillin Sod/Tazobactam Sod (Zosyn/Ns 4.5gm/100ml) 4.5 gm in 100 mls @ 200 mls/hr IV Q8H MATHEW; Protocol Last Admin: 09/02/21 03:30 Dose: 200 mls/hr Magnesium Hydroxide (Magnesium Hydroxide (Mom) Oral Liqd Udc) 30 ml PO Q4H PRN PRN Reason: Constipation Morphine Sulfate (Morphine 2 Mg/1 Ml Inj) 2 mg IV Q4H PRN PRN Reason: Pain, Moderate (4-6) Last Admin: 09/01/21 20:56 Dose: 2 mg Morphine Sulfate (Morphine 4 Mg/1 Ml Inj) 4 mg IV Q4H PRN PRN Reason: Pain , Severe (7-10) Last Admin: 09/02/21 02:30 Dose: 4 mg Ondansetron HCl (Ondansetron 4 Mg/2 Ml Inj) 4 mg IV Q8H PRN PRN Reason: Nausea And Vomiting Last Admin: 09/02/21 00:38 Dose: 4 mg Sodium Chloride (Sodium Chloride 0.9% 10 Ml Flush Syringe) 10 ml IV BID [facility] Last Admin: 09/01/21 21:35 Dose: 10 ml Sodium Chloride (Sodium Chloride 0.9% 10 Ml Flush Syringe) 10 ml IV PRN PRN PRN Reason: LINE FLUSH Reviewed/updated patient's home and current medications Review of Systems - Review of Systems All systems: negative (per HPI) Exam - Constitutional Vital Signs: Temp Pulse Resp BP Pulse Ox 98.8 F 74 16 147/82 99 09/02/21 05:05 09/02/21 05:05 09/02/21 05:05 09/02/21 05:05 09/02/21 05:05 General appearance: no acute distress, obese - EENT Eyes: PERRL, EOM intact - Respiratory Respiratory effort: normal Respiratory: left: CTA - Cardiovascular Rhythm: regular Heart Sounds: Present: S1 & S2 - Gastrointestinal General gastrointestinal: Present: other (soft, nd, post surgical incision sites c/d/i, epigastric/ruq ttp, obese) - Neurologic Neurological: alert and oriented x3 - Psychiatric Psychiatric: appropriate mood/affect - Labs CBC & Chem 7: 09/02/21 07:18 09/02/21 07:18 Lab Results: Laboratory Results - last 24 hr 09/01/21 09/01/21 09/02/21 12:57 16:59 07:18 WBC 10.7 RBC 4.93 Hgb 14.1 Hct 43.8 H MCV 89 MCH 29 MCHC 32 RDW 15.0 Plt Count 253 Lymph % (Auto) 17.3 [place] % (Auto) 6.9 Eos % (Auto) 0.1 Baso % (Auto) 0.5 Lymph # (Auto) 1.9 [place] # (Auto) 0.7 Eos # (Auto) 0.0 Baso # (Auto) 0.1 Seg Neutrophils % 75.2 H Seg Neutrophils # 8.1 H Sodium 143 Potassium 3.9 Chloride 105.7 Carbon Dioxide 28 Anion Gap 13 BUN 12 Creatinine 1.0 D Estimated GFR > 60 BUN/Creatinine Ratio 12 Glucose 92 POC Glucose 116 H Calcium 8.8 Total Bilirubin 0.60 AST 87 H ALT 107 H Alkaline Phosphatase 63 Total Protein 7.2 Albumin 4.1 Albumin/Globulin Ratio 1.3 09/02/21 07:18 WBC RBC Hgb Hct MCV MCH MCHC RDW Plt Count Lymph % (Auto) [place] % (Auto) Eos % (Auto) Baso % (Auto) Lymph # (Auto) [place] # (Auto) Eos # (Auto) Baso # (Auto) Seg Neutrophils % Seg Neutrophils # Sodium 142 Potassium 4.5 Chloride 104.2 Carbon Dioxide 27 Anion Gap 15 BUN 10 Creatinine 0.9 Estimated GFR > 60 BUN/Creatinine Ratio 11 Glucose 110 H POC Glucose Calcium 8.7 Total Bilirubin 0.50 AST 62 H ALT 86 H Alkaline Phosphatase 60 Total Protein 7.4 Albumin 3.9 Albumin/Globulin Ratio 1.1 - Imaging CT Scan: report reviewed Assessment and Plan 1. Abnormal IOC - suggestive of retained cbd stones/debris. 2. Cholethiasis s/p ccy 3. Abnormal liver enzymes - improved, likely due to #1 -will plan ERCP tomorrow AM (7:30 if anesthesia available). pt will need to be intubated prior to procedure due to BMI. okay for clears from gi stand point if okay with surgery and NPO at midnight.
--- NOTE | 2021-09-02 09:26 | Progress Note ---
Assessment and Plan Assessment and plan: 51 yo aaf with h/o morbid obesity, asthma who presents with epigastric/ruq pain. pt has been having recurrent episodes of abd pain for the past year. sx's wax and wane, worsened prior to this admission. found to have abnormal liver enzymes and gallstones on imaging. non-dilated cbd on ct scan. mrcp was unable to be performed to due to bmi/weight. Assessment: Intermittent RUQ abdominal pains with cholelithiasis Presents with biliary colic versus cholecystitis with elevated LFTs S/p laparoscopic cholecystectomy on 09/01 Intraoperative cholangiography unsuccessful due to resistance suggestive of intraductal obstruction, possibly by a stone Scheduled for ERCP under general anesthesia on 09/03 However, LFTs improving postoperatively. Stable postoperatively Constipated, no BMs x3 days, ordered MiraLAX. Accelerated hypertension: Optimizing medical regimen morbid obesity Discussed with the patient. History Interval history: Patient underwent laparoscopic cholecystectomy on 09/01. She still has pain in the right upper quadrant. No BM since 3 days. Feels like she is constipated. Tolerating diet. Afebrile, BP elevated. No chest pains or dyspnea. No chills. Scheduled for ERCP tomorrow. Hospitalist Physical - Constitutional Vitals: Temp Pulse Resp BP Pulse Ox 98.8 F 74 16 147/82 99 09/02/21 05:05 09/02/21 05:05 09/02/21 05:05 09/02/21 05:05 09/02/21 05:05 General appearance: Present: no acute distress, obese (Morbidly obese) - EENT Eyes: Present: PERRL, EOM intact ENT: clear oral mucosa - Neck Neck: Present: supple - Respiratory Respiratory effort: normal Respiratory: bilateral: CTA - Cardiovascular Rhythm: regular - Extremities Extremities: No edema - Abdominal General gastrointestinal: other (Soft, some right upper quadrant tenderness but not severe, no guarding. Bowel sounds present. No masses.) - Integumentary Integumentary: Absent: rash - Psychiatric Psychiatric: other (Anxious) - Neurologic Neurologic: no focal deficits, moves all extremities HEART Score - HEART Score Troponin: Troponin T < 0.010 ng/mL (0.00-0.029) 08/31/21 21:45 Results - Labs CBC & Chem 7: 09/02/21 07:18 09/02/21 07:18 Labs: Laboratory Last Values WBC 10.7 K/mm3 (4.5-11.0) 09/02/21 07:18 RBC 4.93 M/mm3 (3.65-5.03) 09/02/21 07:18 Hgb 14.1 gm/dl (10.1-14.3) 09/02/21 07:18 Hct 43.8 % (30.3-42.9) H 09/02/21 07:18 MCV 89 fl (79-97) 09/02/21 07:18 MCH 29 pg (28-32) 09/02/21 07:18 MCHC 32 % (30-34) 09/02/21 07:18 RDW 15.0 % (13.2-15.2) 09/02/21 07:18 Plt Count 253 K/mm3 (140-440) 09/02/21 07:18 Lymph % (Auto) 17.3 % (13.4-35.0) 09/02/21 07:18 [place] % (Auto) 6.9 % (0.0-7.3) 09/02/21 07:18 Eos % (Auto) 0.1 % (0.0-4.3) 09/02/21 07:18 Baso % (Auto) 0.5 % (0.0-1.8) 09/02/21 07:18 Lymph # (Auto) 1.9 K/mm3 (1.2-5.4) 09/02/21 07:18 [place] # (Auto) 0.7 K/mm3 (0.0-0.8) 09/02/21 07:18 Eos # (Auto) 0.0 K/mm3 (0.0-0.4) 09/02/21 07:18 Baso # (Auto) 0.1 K/mm3 (0.0-0.1) 09/02/21 07:18 Seg Neutrophils % 75.2 % (40.0-70.0) H 09/02/21 07:18 Seg Neutrophils # 8.1 K/mm3 (1.8-7.7) H 09/02/21 07:18 Sodium 142 mmol/L (137-145) 09/02/21 07:18 Potassium 4.5 mmol/L (3.6-5.0) 09/02/21 07:18 Chloride 104.2 mmol/L (98-107) 09/02/21 07:18 Carbon Dioxide 27 mmol/L (22-30) 09/02/21 07:18 Anion Gap 15 mmol/L 09/02/21 07:18 BUN 10 mg/dL (7-17) 09/02/21 07:18 Creatinine 0.9 mg/dL (0.6-1.2) 09/02/21 07:18 Estimated GFR > 60 ml/min 09/02/21 07:18 BUN/Creatinine Ratio 11 % 09/02/21 07:18 Glucose 110 mg/dL (65-100) H 09/02/21 07:18 POC Glucose 116 mg/dL (70-105) H 09/01/21 16:59 Calcium 8.7 mg/dL (8.4-10.2) 09/02/21 07:18 Total Bilirubin 0.50 mg/dL (0.1-1.2) 09/02/21 07:18 AST 62 units/L (5-40) H 09/02/21 07:18 ALT 86 units/L (7-56) H 09/02/21 07:18 Alkaline Phosphatase 60 units/L (35-129) 09/02/21 07:18 Troponin T < 0.010 ng/mL (0.00-0.029) 08/31/21 21:45 Total Protein 7.4 g/dL (6.3-8.2) 09/02/21 07:18 Albumin 3.9 g/dL (3.9-5) 09/02/21 07:18 Albumin/Globulin Ratio 1.1 % 09/02/21 07:18 Lipase 34 units/L (13-60) 08/31/21 21:45 [place]/IV: Voiding Method Bedside Commode Active Medications - Current Medications Current Medications: Generic Name Dose Route Start Last Admin Trade Name Freq PRN Reason Stop Dose Admin Acetaminophen 650 mg 09/01/21 00:24 Acetaminophen 325 Mg Tab PO Q4H PRN Pain MILD(1-3)/Fever >100.5/ROTH Hydralazine HCl 10 mg 09/01/21 10:30 Hydralazine 20 Mg/1 Ml Inj IV Q4HR PRN Blood Pressure Hydralazine HCl 10 mg 09/01/21 17:38 09/01/21 17:32 Hydralazine 20 Mg/1 Ml Inj IV 10 mg ONCE PRN Administration Hypertension Sodium Chloride 1,000 mls @ 125 mls/hr 09/01/21 00:30 09/01/21 21:37 Nacl 0.9% 1000 Ml IV 125 mls/hr DIRECT MATHEW Administration Piperacillin Sod/Tazobactam Sod 4.5 gm in 100 mls @ 200 mls/hr 09/01/21 10:00 09/02/21 03:30 Zosyn/Ns 4.5gm/100ml IV 200 mls/hr Q8H MATHEW Administration Protocol Magnesium Hydroxide 30 ml 09/01/21 00:24 Magnesium Hydroxide (Mom) Oral Liqd Udc PO Q4H PRN Constipation Morphine Sulfate 2 mg 09/01/21 00:24 09/01/21 20:56 Morphine 2 Mg/1 Ml Inj IV 2 mg Q4H PRN Administration Pain, Moderate (4-6) Morphine Sulfate 4 mg 09/01/21 00:24 09/02/21 02:30 Morphine 4 Mg/1 Ml Inj IV 4 mg Q4H PRN Administration Pain , Severe (7-10) Ondansetron HCl 4 mg 09/01/21 00:24 09/02/21 00:38 Ondansetron 4 Mg/2 Ml Inj IV 4 mg Q8H PRN Administration Nausea And Vomiting Sodium Chloride 10 ml 09/01/21 10:00 09/01/21 21:35 Sodium Chloride 0.9% 10 Ml Flush Syringe IV 10 ml BID MATHEW Administration Sodium Chloride 10 ml 09/01/21 00:24 Sodium Chloride 0.9% 10 Ml Flush Syringe IV PRN PRN LINE FLUSH
--- NOTE | 2021-09-02 11:41 | Operative Report ---
Operative Report Operative Report: Date: 09/01/21 Pre-op diagnosis: cholelithiasis Post-op diagnosis: other (cholelithiasis, possible choledocolithiasis) Findings: Distended gallbladder containing small stones. Small stones in cystic duct. Attempted IOC unsuccessful d/t downstream resistance, likely stones. Procedure: lap audrey with attempted IOC Anesthesia: KANU local Surgeon: MELISSA AUSTIN Telemarketing Sales Representative: ROWAN DANIEL Estimated blood loss: minimal Pathology: list (gallbladder) Specimen disposition: to lab Condition: stable Disposition: PACU HPI an indication: 51-year-old female who presented to the ER with complaints of intermittent epigastric abdominal pain radiating to the right upper quadrant. This has been ongoing for 1 year. Pain is associated with fried foods. +Diarrhea, n/v. Patient found to have gallstones and dilated CBD on u/s. Gallbladder distended on CT A/P. LFTs and bilirubin elevated. Patient could not undergo MRCP d/t weight. It was recommended that the patient undergo cholecys tectomy with IOC. All risks, benefits, alternatives to surgery were discussed in detail and questions answered. Consent was obtained for laparoscopic, possible open cholecystectomy, and cholangiogram. Procedure in detail: The patient was identified in the preoperative area and taken back to the operating room, placed on the operating room table in supine position. After anesthesia was induced, the abdomen was prepped and draped in usual sterile fashion and timeout was performed. Local anesthetic was infiltrated into all of the skin incision sites. A 5 mm supraumbilical incision was made through which a veress needle was inserted. The Veress needle positioning was confirmed using saline drop test and the abdomen insufflated to 15 mmHg without incident. The veress was removed and a 5 mm optiview trocar was placed though incision. The abdomen was inspected and there was no injury to the abdominal structures. The patient was then placed into reverse Trendelberg and tilted to the left. A 12mm subxyphoid, 5 mm right lateral, and 5mm right upper quadrant trocars were placed under direct visualization. The gallbladder was distended with adhesions to the omentum. The gallbladder was retracted cephalad and above the liver. The adhesions were carefully dissected using electrocautery and blunt dissection. The cystic duct and artery were carefully skeletonized. The medial and lateral peritoneal attachments to the gallbladder were dissected using a combination of blunt dissection with the [place] and hook electrocautery. The cystic duct and artery were the only 2 structures seen entering the gallbladder and the critical view was successfully obtained. 2 clips were placed on the proximal aspect of the cystic artery and 1 distally this was transected in between the clips using EndoShears. One clip was placed on distal aspect of cystic duct and a ductotomy created using endoshears. Immediately visible were small stones in the duct. Attempts to pass cholangiogram catheter were unsuccessful due to resistance. Stones were palpable in the mid and distal cystic duct. These were gently milked up through the ductotomy. I then passed the cholangiogram catheter into the cystic duct and secured it with kumar clamp. The catheter was tested with injectable saline but met with resistance. The catheter could not be flushed. The cholangiogram was aborted. 3 clips were placed on the proximal aspect of the cystic duct and the duct transected using endoshears. The gallbladder was then dissected from the liver bed using electrocautery. The gallbladder was placed into a Endo Catch bag and removed from the abdomen via the 12mm port. The gallbladder fossa was then inspected and there was no identifiable bleeding or bile leakage. Hemostasis was ensured. The clips on the cystic duct and artery were visualized and intact. The patient was then placed into neutral position. The 12 mm port fascia was closed with interrupted 0 Vicryl suture using the Mc Odonnell device. The remaining ports were removed under direct visualization. Skin incisions were closed with 4-0 Monocryl subcuticular stitches and skin glue. All skin incisions were once again infiltrated with local anesthetic. At the end case all sponge, instrument, sharp counts were correct 2. The patient was awoken from anesthesia, extubated, and taken to PACU in stable condition.
--- NOTE | 2021-09-02 13:45 | Progress Note ---
Assessment and Plan 51-year-old female status post laparoscopic cholecystectomy with attempted IOC, POD 1 Plan: 1. ERCP scheduled for tomorrow. Appreciate GI team assistance 2. CLD, NPO p MN 3. OOB, ambulate 4. prn pain control 5. will s/o. Pt to follow up in surgery clinic in 2 weeks. Plan discussed with patient and in detail along with intraop findings. Thank you, please call with questions. Subjective Date of service: 09/02/21 Narrative: Patient seen and examined. Complains of soreness near incisions. No nausea or vomiting. No fevers or chills. Tolerating clear liquid diet. Objective Vital Signs - 12hr 09/02/21 09/02/21 09/02/21 02:00 02:30 03:00 Temperature Pulse Rate Respiratory 18 18 18 Rate Blood Pressure O2 Sat by Pulse 99 Oximetry 09/02/21 09/02/21 05:05 13:22 Temperature 98.8 F 98.8 F Pulse Rate 74 71 Respiratory 16 18 Rate Blood Pressure 147/82 163/91 O2 Sat by Pulse 99 93 Oximetry - General physical appearance Narrative Exam: Gen.: Awake, alert, oriented x3. No apparent distress ENT: Trachea midline. No lymphadenopathy. No scleral icterus or conjunctival pallor CV: S1, S2 present Respiratory: No audible wheezes Abdomen: Soft, nondistended. Periincisional tenderness to palpation. Incisions are clean, dry, intact. No rebound, rigidity, guarding Extremities: No clubbing, cyanosis, edema - Labs 09/02/21 07:18 09/02/21 07:18 Diabetes panel 09/01/21 09/02/21 Range/Units 12:57 07:18 Sodium 142 (137-145) mmol/L Potassium 4.5 (3.6-5.0) mmol/L Chloride 104.2 (98-107) mmol/L Carbon Dioxide 27 (22-30) mmol/L BUN 10 (7-17) mg/dL Creatinine 1.0 D 0.9 (0.6-1.2) mg/dL Glucose 110 H (65-100) mg/dL Calcium 8.7 (8.4-10.2) mg/dL AST 62 H (5-40) units/L ALT 86 H (7-56) units/L Alkaline Phosphatase 60 (35-129) units/L Total Protein 7.4 (6.3-8.2) g/dL Albumin 3.9 (3.9-5) g/dL Calcium panel 09/02/21 Range/Units 07:18 Calcium 8.7 (8.4-10.2) mg/dL Albumin 3.9 (3.9-5) g/dL Pituitary panel 09/01/21 09/02/21 Range/Units 12:57 07:18 Sodium 142 (137-145) mmol/L Potassium 4.5 (3.6-5.0) mmol/L Chloride 104.2 (98-107) mmol/L Carbon Dioxide 27 (22-30) mmol/L BUN 10 (7-17) mg/dL Creatinine 1.0 D 0.9 (0.6-1.2) mg/dL Glucose 110 H (65-100) mg/dL Calcium 8.7 (8.4-10.2) mg/dL Adrenal panel 09/01/21 09/02/21 Range/Units 12:57 07:18 Sodium 142 (137-145) mmol/L Potassium 4.5 (3.6-5.0) mmol/L Chloride 104.2 (98-107) mmol/L Carbon Dioxide 27 (22-30) mmol/L BUN 10 (7-17) mg/dL Creatinine 1.0 D 0.9 (0.6-1.2) mg/dL Glucose 110 H (65-100) mg/dL Calcium 8.7 (8.4-10.2) mg/dL Total Bilirubin 0.50 (0.1-1.2) mg/dL AST 62 H (5-40) units/L ALT 86 H (7-56) units/L Alkaline Phosphatase 60 (35-129) units/L Total Protein 7.4 (6.3-8.2) g/dL Albumin 3.9 (3.9-5) g/dL
[2021-09-02] MEDS: MORPHINE 2 MG/1 ML INJ IV PRN (14:42)
[2021-09-02] MEDS: DOCUSATE SODIUM 100 MG CAP PO SCH ×2 (14:42→21:01)
[2021-09-02] MEDS: amLODIPine 10 MG TAB PO SCH (21:01)
[2021-09-02] MEDS: ACETAMINOPHEN 325 MG TAB PO PRN (22:50)
[2021-09-02] MEDS: SODIUM CHLORIDE 0.9% 1000 ML 1,000 ML IV SCH (22:50)
[2021-09-03] MEDS: PIPERACIL/TAZOBACTA 4.5/NS 100 4.5 GM/100 ML VIAL IV SCH (02:38)
[2021-09-03 06:41] LABS: Basophils # (Auto) 0.1 K/mm3 (0.0-0.1); Eosinophils # (Auto) 0.1 K/mm3 (0.0-0.4); Hematocrit 42.2 % (30.3-42.9); Hemoglobin 13.8 gm/dl (10.1-14.3); Lymphocytes # (Auto) 2.6 K/mm3 (1.2-5.4); Mean Corpuscular HGB Conc 33 % (30-34); Mean Corpuscular Volume 88 fl (79-97); Monocytes # (Auto) 0.8 K/mm3 (0.0-0.8); Monocytes % (Auto) 9.9 % (0.0-7.3); Platelet Count 221 K/mm3 (140-440); Red Blood Count 4.78 M/mm3 (3.65-5.03); Red Cell Distribution Width 14.8 % (13.2-15.2)
[2021-09-03 06:49] LABS: Basophils % (Auto) 0.8 % (0.0-1.8); Lymphocytes % (Auto) 32.8 % (13.4-35.0)
[2021-09-03 07:02] LABS: Alanine Aminotransferase 58 units/L (7-56); Albumin 3.7 g/dL (3.9-5); BUN/Creatinine Ratio 10; Blood Urea Nitrogen 8 mg/dL (7-17); Calcium 8.2 mg/dL (8.4-10.2); Hemolysis Index 2
[2021-09-03] MEDS ORDERED: MIDAZOLAM 2 MG/2 ML INJ ONE (07:13)
[2021-09-03] MEDS ORDERED: fentaNYL 100 MCG/2 ML INJ ONE (07:13)
[2021-09-03] MEDS ORDERED: SUCCINYLCHOLINE CHLORIDE 200 MG/10 ML INJ MDV ONE (07:13)
[2021-09-03] MEDS ORDERED: propofoL 200 MG/20 ML VIAL IV ONE (07:14)
[2021-09-03] MEDS ORDERED: GLUCAGON (HUMAN RECOMBINANT) 1 MG/ML INJ IV ONE ×2 (08:25)
--- NOTE | 2021-09-03 08:44 | Post Operative Note ---
Pre-op diagnosis: Abnl IOC, Gallstones Post-op diagnosis: other (Minimal Gallbladder Sludge) Findings: 1. Nml ampulla 2. PD cannulated with Fusiontome/0.035 guidewire - Duct normal 3. CBD cannulated with Fusiontome/0.035 guidewire - Small distal filling defect - Medium sphincterotomy - 9mm balloon x 2 through CHD/CBD; removal of sludge with nml Cgram after 4. Clips in RUQ consistent with CCY Procedure: ERCP with biliary sphincterotomy and balloon sweep of CBD Anesthesia: MAC Surgeon: HARJINDER CHAN Estimated blood loss: minimal Pathology: none Specimen disposition: other (N/A) Condition: stable Disposition: floor (Recs: 1. Advance to regular diet; no need for antibiotics. 2. May discharge today if doing well and tolerates PO intake. 3. Avoid NSAIDs for 3 days.)
--- NOTE | 2021-09-03 09:30 | Fluoroscopy Report ---
FLUOROSCOPY ERCP BILIARY AND PANCREATIC DUCTS INDICATION: cbd stones. COMPARISON: None. IMPRESSION: 1 minute of fluoroscopy time was provided by radiology during ERCP by gastroenterology. 9 fluoroscopic images are presented demonstrating ERCP. Please correlate with the procedural report as needed. Signer Name: Sal[place] Santoro Jr, MD Signed: 09/03/2021 9:25 AM Workstation Name: [id number]
--- NOTE | 2021-09-03 09:31 | Operative Report ---
DATE OF SURGERY: 09/03/2021 PROCEDURES PERFORMED: Endoscopic retrograde cholangiopancreatography with biliary sphincterotomy and balloon sweeping of the common bile duct. PREOPERATIVE DIAGNOSES: Abnormal liver enzymes, gallstones, abnormal cholangiogram. POSTOPERATIVE DIAGNOSIS: Biliary sludge, but otherwise normal. ENDOSCOPIST: Oliver Forrester M.D. INSTRUMENT: The Olympus video endoscope. MEDICATIONS: GETA anesthesia by anesthesia services. COMPLICATIONS: No apparent complications. ESTIMATED BLOOD LOSS: Minimal. SPECIMENS: None. IMPLANTS: None. ASSISTANTS: None. CONDITION AT COMPLETION: Stable. TECHNIQUE: The patient was informed of the risks and benefits of the procedure. She signed the informed consent to proceed. She was placed in the prone position after being intubated. The above sedative medications were given. Her vital signs remained stable throughout the procedure. The instrument was advanced from the mouth to the ampulla under direct visualization. At that point, the bowel was insufflated. The ampulla was normal in shape and size. We initially cannulated the pancreatic duct with a Fusion sphincterotome and a 0.035 guidewire. With repositioning, we cannulated the common bile duct with a Fusion sphincterotome and a 0.035 guidewire. A cholangiogram was performed, which showed a small distal filling defect and a medium sphincterotomy was performed. A 9 mm balloon was swept twice through the common hepatic and common bile duct with removal of sludge and the filling defect with a normal cholangiogram at the end of the procedure, which was terminated. FINDINGS: 1. Normal ampulla. 2. Pancreatic duct cannulated with a Fusion sphincterotome and a 0.035 guidewire. A. Pancreatogram was normal. 3. The common bile duct was cannulated with a Fusion sphincterotome and a 0.035 guidewire. A. A small filling defect was noted distally on the cholangiogram; the duct was dilated to approximately 8 mm. B. A medium-sized sphincterotomy was performed. C. A 9 mm balloon was swept twice through the common hepatic duct and common bile duct; there was removal of sludge with a normal cholangiogram at the end of the procedure. 4. Clips were present in the right upper quadrant consistent with a recent cholecystectomy. RECOMMENDATIONS: 1. Advance to regular diet; no need for antibiotics at discharge. 2. May discharge the patient today if doing well and tolerates p.o. intake. 3. Avoid NSAIDs for the next 3 days. 4. We will sign off; please call as needed. TID: [id number] RECEIPT: [id number] LIN/COLBY
[2021-09-03] MEDS: amLODIPine 10 MG TAB PO SCH (10:09)
[2021-09-03] MEDS: POLYETHYLENE GLYCOL 3350 17 GM POWDER PO SCH (10:09)
[2021-09-03] MEDS: DOCUSATE SODIUM 100 MG CAP PO SCH ×2 (10:09→21:40)
[2021-09-03] MEDS: LOSARTAN 50 MG TAB PO SCH (10:09)
[2021-09-03] MEDS: carvediloL 6.25 MG TAB PO SCH ×2 (10:12→17:59)
[2021-09-03] MEDS ORDERED: SODIUM CHLORIDE 0.9% 1000 ML 1,000 ML IV SCH (14:44)
[2021-09-03] MEDS: MORPHINE 4 MG/1 ML INJ IV PRN (21:39)
--- NOTE | 2021-09-03 22:10 | Progress Note ---
Assessment and Plan Assessment and plan: 51 yo aaf with h/o morbid obesity, asthma who presents with epigastric/ruq pain. pt has been having recurrent episodes of abd pain for the past year. sx's wax and wane, worsened prior to this admission. found to have abnormal liver enzymes and gallstones on imaging. non-dilated cbd on ct scan. mrcp was unable to be performed to due to bmi/weight. Assessment: Intermittent RUQ abdominal pains with cholelithiasis Presents with biliary colic versus cholecystitis with elevated LFTs S/p laparoscopic cholecystectomy on 09/01 Intraoperative cholangiography unsuccessful due to resistance suggestive of intraductal obstruction, possibly by a stone However, LFTs improving postoperatively. Underwent ERCP, sphincterotomy and clearance of the distal CBD obstruction Stable postoperatively Constipated, no BMs x4 days, ordered MiraLAX. Passing flatus rectally Per surgery, plan is to advance diet as tolerated and possible discharge either this evening or tomorrow morning. Accelerated hypertension: Optimizing medical regimen morbid obesity Discussed with the patient. History Interval history: Patient underwent ERCP and sphincterotomy earlier this morning. She is alert and oriented but is complaining of nausea and some abdominal pains. She is gómez id of eating and only eating Jell-O. She still constipated but passing flatus rectally. Had Maalox this morning. Hospitalist Physical - Constitutional Vitals: Temp Pulse Resp BP Pulse Ox 98.1 F 76 18 115/74 95 09/03/21 17:14 09/03/21 17:14 09/03/21 17:14 09/03/21 17:14 09/03/21 17:14 General appearance: Present: no acute distress, obese (Morbidly obese) - EENT Eyes: Present: PERRL ENT: clear oral mucosa - Neck Neck: Present: supple - Respiratory Respiratory effort: normal Respiratory: bilateral: CTA - Cardiovascular Rhythm: regular - Extremities Extremities: No edema - Abdominal General gastrointestinal: other (Abdomen soft, some mild tenderness expected postoperatively, bowel sounds present.) - Integumentary Integumentary: Absent: rash - Psychiatric Psychiatric: appropriate mood/affect - Neurologic Neurologic: no focal deficits, moves all extremities HEART Score - HEART Score Troponin: Troponin T < 0.010 ng/mL (0.00-0.029) 08/31/21 21:45 Results - Labs CBC & Chem 7: 09/04/21 04:39 09/04/21 04:39 Labs: Laboratory Last Values WBC 8.0 K/mm3 (4.5-11.0) 09/03/21 06:21 RBC 4.78 M/mm3 (3.65-5.03) 09/03/21 06:21 Hgb 13.8 gm/dl (10.1-14.3) 09/03/21 06:21 Hct 42.2 % (30.3-42.9) 09/03/21 06:21 MCV 88 fl (79-97) 09/03/21 06:21 MCH 29 pg (28-32) 09/03/21 06:21 MCHC 33 % (30-34) 09/03/21 06:21 RDW 14.8 % (13.2-15.2) 09/03/21 06:21 Plt Count 221 K/mm3 (140-440) 09/03/21 06:21 Lymph % (Auto) 32.8 % (13.4-35.0) 09/03/21 06:21 [place] % (Auto) 9.9 % (0.0-7.3) H 09/03/21 06:21 Eos % (Auto) 1.0 % (0.0-4.3) 09/03/21 06:21 Baso % (Auto) 0.8 % (0.0-1.8) 09/03/21 06:21 Lymph # (Auto) 2.6 K/mm3 (1.2-5.4) 09/03/21 06:21 [place] # (Auto) 0.8 K/mm3 (0.0-0.8) 09/03/21 06:21 Eos # (Auto) 0.1 K/mm3 (0.0-0.4) 09/03/21 06:21 Baso # (Auto) 0.1 K/mm3 (0.0-0.1) 09/03/21 06:21 Seg Neutrophils % 55.4 % (40.0-70.0) 09/03/21 06:21 Seg Neutrophils # 4.4 K/mm3 (1.8-7.7) 09/03/21 06:21 Sodium 140 mmol/L (137-145) 09/03/21 06:21 Potassium 3.6 mmol/L (3.6-5.0) 09/03/21 06:21 Chloride 103.3 mmol/L (98-107) 09/03/21 06:21 Carbon Dioxide 26 mmol/L (22-30) 09/03/21 06:21 Anion Gap 14 mmol/L 09/03/21 06:21 BUN 8 mg/dL (7-17) 09/03/21 06:21 Creatinine 0.8 mg/dL (0.6-1.2) 09/03/21 06:21 Estimated GFR > 60 ml/min 09/03/21 06:21 BUN/Creatinine Ratio 10 % 09/03/21 06:21 Glucose 99 mg/dL (65-100) 09/03/21 06:21 POC Glucose 116 mg/dL (70-105) H 09/01/21 16:59 Calcium 8.2 mg/dL (8.4-10.2) L 09/03/21 06:21 Total Bilirubin 0.60 mg/dL (0.1-1.2) 09/03/21 06:21 AST 32 units/L (5-40) 09/03/21 06:21 ALT 58 units/L (7-56) H 09/03/21 06:21 Alkaline Phosphatase 54 units/L (35-129) 09/03/21 06:21 Troponin T < 0.010 ng/mL (0.00-0.029) 08/31/21 21:45 Total Protein 6.9 g/dL (6.3-8.2) 09/03/21 06:21 Albumin 3.7 g/dL (3.9-5) L 09/03/21 06:21 Albumin/Globulin Ratio 1.2 % 09/03/21 06:21 Lipase 34 units/L (13-60) 08/31/21 21:45 [place]/IV: Voiding Method Toilet Active Medications - Current Medications Current Medications: Generic Name Dose Route Start Last Admin Trade Name Freq PRN Reason Stop Dose Admin Acetaminophen 650 mg 09/01/21 00:24 09/02/21 22:50 Acetaminophen 325 Mg Tab PO 650 mg Q4H PRN Administration Pain MILD(1-3)/Fever >100.5/ROTH Amlodipine Besylate 10 mg 09/02/21 19:00 09/03/21 10:09 Amlodipine 10 Mg Tab PO 10 mg DAILY MATHEW Administration Carvedilol 6.25 mg 09/03/21 08:00 09/03/21 17:59 Carvedilol 6.25 Mg Tab PO 6.25 mg BID@0800,1700 MATHEW Administration Docusate Sodium 100 mg 09/02/21 14:00 09/03/21 21:40 Docusate Sodium 100 Mg Cap PO 100 mg BID MATHEW Administration Hydralazine HCl 10 mg 09/01/21 10:30 09/03/21 09:14 Hydralazine 20 Mg/1 Ml Inj IV 10 mg Q4HR PRN Administration Blood Pressure Sodium Chloride 1,000 mls @ 125 mls/hr 09/03/21 14:44 Nacl 0.9% 1000 Ml IV DIRECT MATHEW Losartan Potassium 100 mg 09/03/21 10:00 09/03/21 10:09 Losartan 50 Mg Tab PO 100 mg QDAY MATHEW Administration Magnesium Hydroxide 30 ml 09/01/21 00:24 Magnesium Hydroxide (Mom) Oral Liqd Udc PO Q4H PRN Constipation Morphine Sulfate 2 mg 09/01/21 00:24 09/02/21 14:42 Morphine 2 Mg/1 Ml Inj IV 2 mg Q4H PRN Administration Pain, Moderate (4-6) Morphine Sulfate 4 mg 09/01/21 00:24 09/03/21 21:39 Morphine 4 Mg/1 Ml Inj IV 4 mg Q4H PRN Administration Pain , Severe (7-10) Ondansetron HCl 4 mg 09/01/21 00:24 09/02/21 00:38 Ondansetron 4 Mg/2 Ml Inj IV 4 mg Q8H PRN Administration Nausea And Vomiting Polyethylene Glycol 17 gm 09/03/21 10:00 09/03/21 10:09 Polyethylene Glycol 3350 17 Gm Powder PO 17 gm QDAY MATHEW Administration Sodium Chloride 10 ml 09/01/21 10:00 09/03/21 21:40 Sodium Chloride 0.9% 10 Ml Flush Syringe IV 10 ml BID MATHEW Administration Sodium Chloride 10 ml 09/01/21 00:24 Sodium Chloride 0.9% 10 Ml Flush Syringe IV PRN PRN LINE FLUSH
[2021-09-04 04:49] VITALS: BP 119/69
[2021-09-04 05:49] LABS: Basophils % (Auto) 0.5 % (0.0-1.8); Eosinophils # (Auto) 0.2 K/mm3 (0.0-0.4); Eosinophils % (Auto) 2.7 % (0.0-4.3); Hematocrit 43.7 % (30.3-42.9); Hemoglobin 13.9 gm/dl (10.1-14.3); Lymphocytes # (Auto) 2.7 K/mm3 (1.2-5.4); Lymphocytes % (Auto) 37.2 % (13.4-35.0); Mean Corpuscular HGB Conc 32 % (30-34); Mean Corpuscular Volume 88 fl (79-97); Monocytes # (Auto) 0.7 K/mm3 (0.0-0.8); Monocytes % (Auto) 10.1 % (0.0-7.3); Platelet Count 218 K/mm3 (140-440); Red Blood Count 4.95 M/mm3 (3.65-5.03)
[2021-09-04 06:15] LABS: Alanine Aminotransferase 49 units/L (7-56); Albumin 3.7 g/dL (3.9-5); BUN/Creatinine Ratio 12; Blood Urea Nitrogen 11 mg/dL (7-17); Calcium 8.7 mg/dL (8.4-10.2); Hemolysis Index 10
[2021-09-04] MEDS ORDERED: POTASSIUM CHLORIDE ER 20 MEQ TAB PO SCH (10:00)
[2021-09-04] MEDS: LOSARTAN 50 MG TAB PO SCH (10:07)
[2021-09-04] MEDS: POLYETHYLENE GLYCOL 3350 17 GM POWDER PO SCH (10:07)
[2021-09-04] MEDS: DOCUSATE SODIUM 100 MG CAP PO SCH (10:07)
[2021-09-04] MEDS: amLODIPine 10 MG TAB PO SCH (10:07)
[2021-09-04] MEDS: carvediloL 6.25 MG TAB PO SCH (10:07)
--- NOTE | 2021-09-04 12:12 | Discharge Summary ---
Providers - Providers Date of Admission: 09/01/21 00:25 Attending physician: HERMINIO ALAMO MD 09/01/21 00:24 Consult to Physician [CONS] Routine Comment: Consulting Provider: MELISSA AUSTIN Physician Instructions: Reason For Exam: Abdominal Pain,Cholecystitis 09/01/21 16:40 Consult to Physician [CONS] Routine Comment: already contacted dr. mtz Consulting Provider: IAN MTZ Physician Instructions: Reason For Exam: likely choledoco, unsuccessful IOC during CCY Primary care physician: S[employer]ING EXAMINER Hospitalization Condition: Stable Disposition: 01 HOME / SELF CARE / HOMELESS Exam - Constitutional Vitals: Temp Pulse Resp BP Pulse Ox 97.9 F 71 20 119/69 97 09/04/21 04:46 09/04/21 04:46 09/04/21 04:46 09/04/21 04:46 09/04/21 07:17 General appearance: Present: no acute distress, obese - EENT Eyes: Present: PERRL, EOM intact ENT: clear oral mucosa - Neck Neck: Present: supple - Respiratory Respiratory effort: normal Respiratory: bilateral: CTA - Cardiovascular Rhythm: regular - Abdominal General gastrointestinal: Present: soft, normal bowel sounds - Musculoskeletal Musculoskeletal: strength equal bilaterally - Neurologic Neurologic: no focal deficits, moves all extremities Plan Activity: advance as tolerated Diet: regular, low fat Follow up with: MELISSA AUSTIN DO [Staff Physician] - 14 Days PRIMARY CARE, [Primary Care Provider] - 3-5 Days Prescriptions: HYDROcodone/APAP 7.5-325 [[place] 7.5/325] 1 each PO Q6HR PRN #20 tablet PRN Reason: Pain
[2021-09-04] MEDS: ACETAMINOPHEN 325 MG TAB PO PRN (13:03)
== END 2021-09-04 14:35 | disposition home or self-care (01) | DRG 418 ==
LOC: ED 19:08 → 3A 09-01 00:25
PROVIDERS: ADMIT Internal Medicine Geriatric Medicine; ATTEND Internal Medicine
PROC: 0FT44ZZ Resection of Gallbladder, Percutaneous Endoscopic Approach (ICD-10-PCS; principal; 2021-09-01)
PROC: BF031ZZ Plain Radiography of Gallbladder and Bile Ducts using Low Osmolar Contrast (ICD-10-PCS; 2021-09-01)
PROC: 0F798ZZ Dilation of Common Bile Duct, Via Natural or Artificial Opening Endoscopic (ICD-10-PCS; 2021-09-03)
PROC: 0F778ZZ Dilation of Common Hepatic Duct, Via Natural or Artificial Opening Endoscopic (ICD-10-PCS; 2021-09-03)
PROC: 0FC98ZZ Extirpation of Matter from Common Bile Duct, Via Natural or Artificial Opening Endoscopic (ICD-10-PCS; 2021-09-03)
DX: K80.00 Calculus of gallbladder with acute cholecystitis without obstruction (principal); Z68.43 Body mass index [BMI] 50.0-59.9, adult; I10 Essential (primary) hypertension; E66.01 Morbid (severe) obesity due to excess calories
CPT/HCPCS: 36415; 74176; 74330; 80053; 82962; 83690; 84484; 85025; 88304; G0378; J1815; J3490; J7120; Q0162; C1726; J0330; J0360; J1100; J1170; J1610; J1885; J2250; J2270; J2405; J2543; J2704; J2710; J2765; J3010; J7030; Q9967